=== PATIENT | female | born 1985 | race Caucasian/White ===

== ENCOUNTER 2019-12-16 12:02 | Outpatient (CLI) | payer OTHER, SELFPAY ==
--- NOTE | ~2019-12-16 | XR_ITS ---
EXAMINATION:XR cervical spine 4-5V DATE: 12/16/2019 12:40 INDICATION: Neck pain TECHNIQUE: AP, and lateral in neutral, flexion, extension views of the cervical spine are provided. COMPARISON: MRI, 11/22/2017 FINDINGS: Alignment is normal. The odontoid is intact. No fracture is identified. The vertebral body heights are normal. Again seen are changes of anterior fusion procedure at C5-6. There has been inter [place] anterior fusion at C6-7. No laxity is present with flexion or extension. Prevertebral soft tissue s are normal. IMPRESSION: 1. Anterior fusion at C5-6 and interval anterior fusion at C6-7 without Q findings. Reviewed, dictated and finalized at location A. IMPRESSION: 1. Anterior fusion at C5-6 and interval anterior fusion at C6-7 without Q findi ngs.
== END 2019-12-16 12:03 | disposition home or self-care (01) ==
LOC: CHSIMG 12:09
PROVIDERS: PCP Family Medicine
DX: M50.120 Mid-cervical disc disorder, unspecified level (principal)
CPT/HCPCS: 72050

== ENCOUNTER 2021-09-24 16:52 | Outpatient (CLI) | payer OTHER, SELFPAY ==
--- NOTE | ~2021-09-24 | XR_ITS ---
EXAMINATION: XR abdomen obstructive series EXAM DATE: 09/24/2021 17:07 INDICATION: LUQ pain with constipation x3wks. TECHNIQUE: Frontal upright projection of the upper abdomen, frontal projection of the lower abdomen f or interpretation. There is no prior study for comparison. FINDINGS: There is IUD projecting over the central aspect of the pelvis. There is moderate amount of colonic stool and gas. No small bowel dilation, nonobstructive bowel gas pattern. There are no s uspicious calcifications identified. There is no organomegaly suspected. The bones are unremarkabl e. Lung bases are unremarkable. IMPRESSION: Moderate amount of colonic stool. Reviewed, dictated and finalized at location G.
== END 2021-09-24 16:53 | disposition home or self-care (01) ==
LOC: CHSIMG 16:54
PROVIDERS: PCP Family Medicine; Visit Provider Family Medicine
DX: K59.00 Constipation, unspecified (principal)
CPT/HCPCS: 74019

== ENCOUNTER 2021-10-01 12:54 | Outpatient (CLI) | payer OTHER, SELFPAY ==
--- NOTE | ~2021-10-01 | XR_ITS ---
EXAMINATION: XR abdomen obstructive series EXAM DATE: 10/01/2021 13:11 INDICATION: Constipation, Generalized abdominal pain,Xmonth,No Relief TECHNIQUE: Frontal upright projection of the upper abdomen, frontal projection of the lower abdomen f or interpretation. Comparison is made to prior examination from 09/24/2021. FINDINGS: There is IUD projecting over the central aspect of the pelvis. There is moderate amount o f colonic stool and gas. No small bowel dilation, nonobstructive bowel gas pattern. There are no suspicious calcifications identified. There is no organomegaly suspected. The bones are unremarkab le. There is no free intraperitoneal air. The lung bases are clear. There is no significant inter [place] change. IMPRESSION: Moderate amount of colonic stool. Reviewed, dictated and finalized at location B.
--- NOTE | 2021-10-01 19:00 | PC.NURSE ---
Addendum entered by Joy Jones RN 10/01/21 19:11: Correction: Soap suds enema administered at 1745. Original Note: 1845 administered soap suds enema of approximately 1000 ml. Pt tolerated well. Pt sat on bsc for about thirty minutes at which point she called for assistance. Pt stated that she felt like something was hanging out. She said she had reported this to Dr. Lewis as well. She also stated she had several episodes of incontinent watery stools over the last few days. On assessment, pt has a large portion of rectum hanging out (about the size of a tennis ball). Pt was able to push it back into place without incident. Pt was instructed to dress and go to ER since PCP office was closed.
== END 2021-10-01 12:55 | disposition home or self-care (01) ==
LOC: CHSIMG 12:56 → CHSTREATRM 17:30
PROVIDERS: PCP Family Medicine; Visit Provider Family Medicine
DX: K59.00 Constipation, unspecified (principal); R10.9 Unspecified abdominal pain
CPT/HCPCS: 74019; 99211; G0463

== ENCOUNTER 2021-10-01 18:42 | Emergency (ER) | payer OTHER, SELFPAY ==
--- NOTE | ~2021-10-01 | CT_ITS ---
EXAMINATION: CT abdomen pelvis w con DATE: 10/01/2021 21:17 INDICATION: Rectal prolapse. Right upper quadrant abdominal pain. Constipation. TECHNIQUE: Computed tomography (CT) of the abdomen and pelvis was performed with 100 mL Omnipaque 350 intravenous contrast. Automated exposure control and iterative reconstruction technique were employe d. The dose-length product was 726.67 mGy-cm. COMPARISON: None. FINDINGS: The visualized portions of the lung bases demonstrate mild atelectasis. No pleural effusion . The heart size is normal. No pericardial effusion. The liver, spleen, gallbladder, pancreas, adrena l glands, and kidneys are normal. There is an intrauterine device in expected position. There are no dilated loops of bowel. The appendix is normal. There are no pathologically enlarged lymph nodes. Pel saray floor relaxation is noted. There is no free intraperitoneal fluid. There is mild thoracolumbar sp ondylosis. IMPRESSION: 1. Pelvic floor relaxation. Reviewed, dictated and finalized at location A. IMPRESSION: 1. Pelvic floor relaxation.
--- NOTE | 2021-10-01 19:05 | ED.GENADULT ---
HPI - General Adult General Chief complaint: Unspecified Stated complaint: prolapsed rectum Time Seen by Provider: 10/01/21 19:05 Source: patient History of Present Illness HPI narrative: 36-year-old female with back problems status post surgery, status post thoracic outlet repair, anxiety presents to the ER with -- rectal prolapse off and for the past few weeks . Whenever the patient strains at stool or to have urine she has rectal prolapse. No rectocele or cystocele. patient has a history of 2 vaginal deliveries Patient does not have a history pelvic surgery. No history of chronic constipation -- patient has not had a bowel movement for the past 14 days. whenever the patient attempts to a bowel rectum prolapses and she does not have bowel movement. The patient was sent to the hospital for a soapsuds enema. The enema produced 1 small pellets of stool. -- She developed diffuse abdominal pain worse in the epigastric region and in the lower abdomen. She has had chronic abdominal discomfort for the past 2 weeks but today during the enema she developed acute pain. No nausea/ vomiting. Patient is passing flatus. Onset (ago): day(s) Location: abdomen Radiation: non-radiation Severity: moderate Quality: aching Pain Consistency: constant Relieving factors: none Treatments prior to arrival: none Related Data Home Medications Medication Instructions Recorded Confirmed alprazolam 0.5 mg PO DAILY 10/01/21 10/01/21 pregabalin 200 mg PO DAILY 10/01/21 10/01/21 quetiapine 25 mg PO DAILY 10/01/21 10/01/21 quetiapine 50 mg PO DAILY 10/01/21 10/01/21 quetiapine 100 mg PO DAILY 10/01/21 10/01/21 Allergies Allergy/AdvReac Type Severity Reaction Status Date / Time No Known Allergies Allergy Verified 10/01/21 19:16 Review of Systems Review of Systems: All systems reviewed & are unremarkable except as noted in HPI and below Constitutional: Constitutional: Reports as per HPI and Reports no additional constitutional complaints Eyes: Eyes: Reports as per HPI and Reports no additional eye complaints ENT: Reports system reviewed and no additional complaints, except as documented and Reports as per HPI Cardiovascular: Cardiovascular: Reports as per HPI and Reports no additional cardiovascular complaints Respiratory: Respiratory: Reports as per HPI and Reports no additional respiratory complaints Gastrointestinal: Gastrointestinal: Reports as per HPI, Reports no additional gastrointestinal complaints and Reports abdominal pain Comments: Rectal prolapse which is reducible Genitourinary: Genitourinary: Reports no additional female genitourinary complaints Musculoskeletal: Musculoskeletal: Reports no additional musculoskeletal complaints and Reports as per HPI Integumentary/Breasts: Skin/Breast: Reports system reviewed and no additional complaints, except as docu and Reports as per HPI Neurologic: Reports system reviewed and no additional complaints, except as documented and Reports as per HPI Psychiatric: Psychiatric: Reports no additional psychiatric complaints and Reports as per HPI Endocrine: Endocrine: Reports no additional endocrine complaints and Reports as per HPI Hematologic/Lymphatic: Hematologic/Lymphatic: Reports no additional hematologic/lymphatic complaints and Reports as per HPI Allergic/Immunologic: Allergic/Immunologic: Reports no additional allergic/immunologic complaints and Reports as per HPI [facility] Past Medical History Medical History (Updated 10/01/21 @ 22:02 by Abilio Coulter MD) Back pain with history of spinal surgery Thoracic outlet syndrome Exam Const: General: no acute distress and alert Orientation/consciousness: patient oriented x3 HENMT: Head: normal to inspection Eyes: Conjunctivae: conjunctivae normal Pupils: Equal, round and reactive pupils present Neck: Neck: normal visual inspection, no lymphadenopathy and no meningeal signs Chest: Chest palpation & inspection: n
[2021-10-01 19:12] VITALS: BP 114/83; PULSE 60; RESP 16; TEMP 36.6; O2SAT 97
[2021-10-01 19:53] LABS: Basophils Absolute Auto 0.04 K/mm3 (0.00-0.10); Basophils Percent Auto 0.7 % (0.0-1.0); Eosinophils Absolute Auto 0.12 K/mm3 (0.02-0.50); Hematocrit 36.6 % (35.0-49.0); Hemoglobin 12.4 g/dL (12.0-15.0); Immature Granulocyte Absolute 0.02 K/mm3 (0.00-0.00); Immature Granulocyte Percent A 0.3 % (0.0-0.0); Lymphocytes Percent Auto 33.4 % (18.0-42.0); Mean Corpuscular HGB Conc 33.9 g/dL (32.0-36.0); Mean Corpuscular Hemoglobin 31.9 pg (27.0-31.0); Mean Corpuscular Volume 94.1 fL (78.0-102.0); Mean Platelet Volume 9.7 fl (9.2-11.8); Monocytes Absolute Auto 0.53 K/mm3 (0.10-0.90); Monocytes Percent Auto 8.9 % (2.0-11.0); Neutrophils Absolute Auto 3.3 K/mm3 (1.7-7.2); Neutrophils Percent Auto 54.7 % (50.0-70.0); Platelet Count Result 375 K/mm3 (150-420); Red Blood Count 3.89 M/mm3 (4.20-5.40)
[2021-10-01 20:06] LABS: INR 0.9; Prothrombin Time 9.8 Seconds (9.50-12.10)
[2021-10-01 20:10] LABS: Alanine Aminotransferase 64 U/L (14-59); Albumin Level 3.9 g/dL (3.4-5.0); Alkaline Phosphatase 113 U/L (46-116); Anion Gap 9 mmol/L (8-16); Aspartate Amino Transferase 27 U/L (15-37); Bilirubin,Total 0.4 mg/dL (0.00-1.00); Blood Urea Nitrogen 11 mg/dL (7-18); Calcium 8.5 mg/dL (8.5-10.1); Carbon Dioxide 26 mmol/L (21-32); Chloride 102 mmol/L (98-108); Estimated CRCL calculation 84 ml/min; Estimated Glomerular Filt Rate > 60; Glucose 101 mg/dL (70-99); Osmolality Calculated 283 mOsm/kg (285-295); Potassium 3.6 mmol/L (3.5-5.1); Sodium 137 mmol/L (136-145); Total Protein 7.3 g/dL (6.4-8.2)
[2021-10-01 20:11] LABS: Troponin I < 4.0 ng/L (0.00-60.4)
[2021-10-01 20:13] LABS: Lactic Acid Reflex 0.8 mmol/L (0.4-2.0)
[2021-10-01] MEDS: HYDROmorphone HCL INJ (*CRX) 2 MG/ML VIAL 0.5 MG IV PUSH (20:27)
[2021-10-01] MEDS: LACTATED RINGERS 1,000 ML 999 ML IV CONT (20:28)
[2021-10-01] MEDS: ONDANSETRON INJ 4 MG/2 ML VIAL IV PUSH (20:29)
--- NOTE | 2021-10-01 22:07 | PC.NURSE ---
[facility] transfer center called [phone]
[2021-10-01 23:00] VITALS: BP 114/85; PULSE 82; RESP 16; TEMP 36.6; O2SAT 98
== END 2021-10-01 23:00 | disposition home or self-care (01) ==
PROVIDERS: Emergency Provider Internal Medicine Critical Care Medicine; PCP Family Medicine
DX: K62.3 Rectal prolapse (principal); R10.84 Generalized abdominal pain; K59.02 Outlet dysfunction constipation
CPT/HCPCS: 36415; 74177; 80053; 83605; 84484; 85025; 85610; 96361; 96374; 96375; 99284; J1170; J2405; J7120; Q9967

== ENCOUNTER 2021-12-10 15:58 | Outpatient (CLI) | payer OTHER, SELFPAY ==
--- NOTE | ~2021-12-10 | XR_ITS ---
XR shoulder LT min 2V 12/10/2021 17:04 INDICATION: Left shoulder pain PROCEDURE: 4 views left shoulder COMPARISON: No prior studies for comparison. FINDINGS: Fracture, dislocation or subluxation is not identified. The soft tissues appear within norm al limits. No foreign bodies are identified. IMPRESSION: 1: NO ACUTE BONE OR JOINT ABNORMALITY IDENTIFIED. Reviewed, dictated and finalized at location B.
--- NOTE | ~2021-12-10 | XR_ITS ---
XR hip RT min 2V 12/10/2021 17:03 INDICATION: Right hip pain PROCEDURE: 2 views right hip COMPARISON: No prior studies for comparison. FINDINGS: Fracture, dislocation or subluxation is not identified. The soft tissues appear within norm al limits. No foreign bodies are identified. IMPRESSION: 1: NO ACUTE BONE OR JOINT ABNORMALITY IDENTIFIED. Reviewed, dictated and finalized at location B.
[2021-12-10 16:21] LABS: Appearance Urine Clear (Clear); Basophils Absolute Auto 0.03 K/mm3 (0.00-0.10); Basophils Percent Auto 0.4 % (0.0-1.0); Bilirubin Urine Negative (Negative); Color Urine Yellow (Yellow); Eosinophils Absolute Auto 0.06 K/mm3 (0.02-0.50); Eosinophils Percent Auto 0.8 % (1.0-6.0); Glucose Urine UA Negative (Negative); Hematocrit 38.8 % (35.0-49.0); Hemoglobin 13.1 g/dL (12.0-15.0); Immature Granulocyte Absolute 0.03 K/mm3 (0.00-0.00); Immature Granulocyte Percent A 0.4 % (0.0-0.0); Ketones Urine Negative (Negative); Leukocyte Esterase Ur Negative (Negative); Lymphocytes Absolute Auto 2.19 K/mm3 (1.10-4.50); Lymphocytes Percent Auto 29.6 % (18.0-42.0); Mean Corpuscular HGB Conc 33.8 g/dL (32.0-36.0); Mean Corpuscular Hemoglobin 32.2 pg (27.0-31.0); Mean Corpuscular Volume 95.3 fL (78.0-102.0); Mean Platelet Volume 9.4 fl (9.2-11.8); Monocytes Absolute Auto 0.36 K/mm3 (0.10-0.90); Monocytes Percent Auto 4.9 % (2.0-11.0); Neutrophils Absolute Auto 4.7 K/mm3 (1.7-7.2); Neutrophils Percent Auto 63.9 % (50.0-70.0); Nitrate Urine Negative (Negative); Platelet Count Result 369 K/mm3 (150-420); Protein Urine Negative (Negative); Red Blood Count 4.07 M/mm3 (4.20-5.40); Red Cell Distribution Width 12.3 % (11.6-14.4); Specific Grav Ur 1.025 (1.010-1.020); Urobilinogen Urine 0.2 mg/dL (0.2-1.0); White Blood Count 7.4 K/mm3 (4.8-10.8)
[2021-12-10 16:37] LABS: Add Urine Microscopic? YES; Alanine Aminotransferase 37 U/L (14-59); Alkaline Phosphatase 91 U/L (46-116); Amylase 69 U/L (25-115); Anion Gap 9 mmol/L (8-16); Aspartate Amino Transferase 21 U/L (15-37); Bacteria Urine 1+ /hpf; Blood Urea Nitrogen 7 mg/dL (7-18); Blood Urine Trace-Intact (Negative); Carbon Dioxide 27 mmol/L (21-32); Chloride 102 mmol/L (98-108); Estimated Glomerular Filt Rate > 60; Glucose 147 mg/dL (70-99); Lipase 98 U/L (73-393); Mucus Urine Moderate /lpf; Osmolality Calculated 287 mOsm/kg (285-295); Potassium 3.8 mmol/L (3.5-5.1); RBC Urine 0-2 /hpf (0-2); Sodium 138 mmol/L (136-145); Squamous Epithelial Cell Urine Few /hpf (Few); Total Protein 7.8 g/dL (6.4-8.2); WBC Urine None seen /hpf (0-3)
[2021-12-10 17:21] LABS: Pregnancy On Board Control Positive; Urine Pregnancy Test Negative
[2021-12-10 17:29] LABS: Hemoglobin A1C 5.5 % (<5.7)
== END 2021-12-10 15:59 | disposition home or self-care (01) ==
LOC: CHSLAB 16:02
PROVIDERS: PCP Family Medicine; Visit Provider Family Medicine
DX: R10.84 Generalized abdominal pain (principal); M25.512 Pain in left shoulder; M25.551 Pain in right hip; R73.9 Hyperglycemia, unspecified
CPT/HCPCS: 36415; 73030; 73502; 80053; 81001; 81025; 82150; 83036; 83690; 85025

== ENCOUNTER 2021-12-13 15:17 | Outpatient (CLI) | payer OTHER, SELFPAY ==
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
== END 2021-12-13 15:18 | disposition home or self-care (01) ==
LOC: CHSIMG 15:18
PROVIDERS: PCP Family Medicine; Visit Provider Family Medicine
DX: R10.84 Generalized abdominal pain (principal); M25.512 Pain in left shoulder; M25.551 Pain in right hip
CPT/HCPCS: 74176

== ENCOUNTER 2022-05-14 14:23 | Emergency (ER) | payer OTHER, SELFPAY ==
[2022-05-14 14:37] VITALS: BP 127/77; PULSE 90; RESP 16; TEMP 36.6; O2SAT 98
--- NOTE | 2022-05-14 15:03 | PC.NURSE ---
patient got upset because she wanted an increase dose suboxone for pain. refused abx, and steroid, and left.
--- NOTE | 2022-05-14 15:11 | ED.EAR ---
HPI - Ear Problem General Chief complaint: Ear Stated complaint: pain in both ears causing neck and face pain Time Seen by Provider: 05/14/22 14:39 Source: patient Mode of arrival: ambulatory Limitations: no limitations History of Present Illness HPI Narrative: here today with bilateral ear pain and pressure with some nasal congestion frontal sinus pressure with no fever chills, patient has seen her primary and was put on Flonase and given a steroid pack and was given a dose of antibiotics, and is scheduled to see her hypoid gear generator. The patient presents with continuing ear pressure and pain, patient is a drug abuser currently on Suboxone. MD Complaint: ear pain Related Data Home Medications Medication Instructions Recorded Confirmed alprazolam 0.5 mg tablet 0.5 mg PO DAILY 10/01/21 05/14/22 pregabalin 200 mg capsule 200 mg PO DAILY 10/01/21 05/14/22 quetiapine 100 mg tablet 100 mg PO DAILY 10/01/21 05/14/22 quetiapine 25 mg tablet 25 mg PO DAILY 10/01/21 05/14/22 quetiapine 50 mg tablet 50 mg PO DAILY 10/01/21 05/14/22 buspirone 10 mg tablet 10 mg PO BID 05/14/22 05/14/22 duloxetine 60 mg capsule,delayed 60 mg PO BID 05/14/22 05/14/22 release ibuprofen 800 mg tablet 800 mg PO TID 05/14/22 05/14/22 prazosin 2 mg capsule 2 mg PO DAILY 05/14/22 05/14/22 prednisone 5 mg tablet 5 mg PO DIRECTED 05/14/22 05/14/22 Allergies Allergy/AdvReac Type Severity Reaction Status Date / Time No Known Allergies Allergy Verified 05/14/22 14:41 Review of Systems Review of Systems: All systems reviewed & are unremarkable except as noted in HPI and below PMFSH Past Medical History Medical History Back pain with history of spinal surgery Thoracic outlet syndrome Exam Const: General: healthy appearing, no acute distress and alert Nutritional Appearance: well nourished Orientation/consciousness: patient oriented x3 Limitations: no limitations HENMT: Other: Frontal and maxillary sinus tenderness with palpation with some nasal congestion with some postnasal drip bilateral ear dullness and pressure. Eyes: Conjunctivae: conjunctivae normal Pupils: Equal, round and reactive pupils present EOM: EOMs intact bilaterally Neck: Neck: normal visual inspection Chest: Chest palpation & inspection: normal inspection of the chest Resp: Effort & Inspection: normal respiratory effort Auscultation: clear to auscultation bilaterally Cardio: Rate: regular rate Rhythm: regular rhythm GI: Auscultation: normal bowel sounds Skin: General skin exam: normal color Rashes: no rashes Wounds: no wounds Neuro: General: patient oriented x3 Cranial nerves: Yes Nystagmus not present Speech: normal speech Extrem: General: normal to inspection Psych: Affect: Anxious affect present Course Course Emergency Course: Patient had dexamethasone and ceftriaxone ordered, the patient insisted on having her Suboxone dose adjusted and patient eloped without being treated. Vital Signs Vital signs: Vital Signs Temperature 36.6 C 05/14/22 14:37 Pulse Rate 90 05/14/22 14:37 Respiratory Rate 16 05/14/22 14:37 Blood Pressure 127/77 05/14/22 14:37 Pulse Oximetry 98 05/14/22 14:37 Oxygen Delivery Room Air 05/14/22 14:37 Temperature 36.6 C 05/14/22 14:37 Pulse Rate 90 05/14/22 14:37 Respiratory Rate 16 05/14/22 14:37 Blood Pressure 127/77 05/14/22 14:37 Pulse Oximetry 98 05/14/22 14:37 Oxygen Delivery Room Air 05/14/22 14:37 Medical Decision Making Vital Signs Vital Signs: Vital Signs Temperature 36.6 C 05/14/22 14:37 Pulse Rate 90 05/14/22 14:37 Respiratory Rate 16 05/14/22 14:37 Blood Pressure 127/77 05/14/22 14:37 Pulse Oximetry 98 05/14/22 14:37 Oxygen Delivery Room Air 05/14/22 14:37 Temperature 36.6 C 05/14/22 14:37 Pulse Rate 90 05/14/22 14:37 Respiratory Rate 16 05/14/22 14:37 B
== END 2022-05-14 15:06 | disposition left against medical advice (07) ==
LOC: CHSED 14:49
PROVIDERS: Emergency Provider Emergency Medicine; PCP Family Medicine
DX: H66.93 Otitis media, unspecified, bilateral (principal)
CPT/HCPCS: 99281

== ENCOUNTER → 2023-02-17 12:34 | Outpatient (CLI) | payer OTHER, SELFPAY ==
--- NOTE | ~2023-02-17 | MR_ITS ---
EXAMINATION: MR orbits face neck wo/w con DATE: 02/17/2023 13:35 INDICATION: Neck pain. Posterior neck lump. TECHNIQUE: Magnetic resonance imaging (MRI) of the neck was performed without and with 15 mL MultiHan ce intravenous contrast. COMPARISON: Cervical spine MRI 11/22/2017 FINDINGS: There is mild mucosal thickening in the paranasal sinuses. Left maxillary sinus is smaller than the right. There are no pathologically enlarged lymph nodes. There is 14 degrees levoscoliosis of cervicothoracic spine. There are changes of disc replacements at C5-C6 and C6-C7. IMPRESSION: 1. No abnormal mass or lymphadenopathy. Reviewed, dictated and finalized at location A.
== END ==
PROVIDERS: PCP Family Medicine; Visit Provider Family Medicine
DX: M54.2 Cervicalgia (principal); R09.89 Other specified symptoms and signs involving the circulatory and respiratory systems
CPT/HCPCS: 70543; A9577